=== PATIENT | male | born 1960 | race Caucasian/White ===

== ENCOUNTER → 2024-06-26 09:32 | Outpatient (CLI) | payer OTHER, SELFPAY ==
--- NOTE | 2024-06-26 13:51 | ST.SWALLOW ---
Visit Care Team Role Provider Type Lisha Vargas MD Attending Provider Non-Staff Primary Care Provider Referring Provider Specialty: Family Practice Address: [address] [place] [address], [id number] Email: Modified Barium Swallow Study [employer] Modified Barium Swallow Study Start: 06/26/24 10:29 Freq: Status: Active Protocol: Document 06/26/24 13:14 LNK (Rec: 06/26/24 13:36 [id number]) Modified Barium Swallow Study Total Time Visit Start Time 09:45 Visit Stop Time 10:15 Total Visit Minutes [address] Lisha Vargas Setting Setting Outpatient Care Patient Information Identification Type Name,Date of Patient History Pt seen for Modified Barium Swallow Study with c/o pain in his stomach when eating dense meats such as steak and prime rib. Pt noted that he has been chewing foods well, but that has not reduced the pain. He described the pain as very uncomfortable, pointing to his stomach. Pt denied any swallowing difficulty at the oral, pharyngeal and esophageal area when questioned. Pt denied choking on foods, liquids and medications. Subjective Observations Pt was seated in the fluoroscopy chair with directions and procedures described for him. He indicated he understood and agreed to proceed. Patient Positioning Position View Lat-A/P Imaging Lateral View Textures Administered Trials Presented Thin Liquid via Spoon (IDDSI 0 ),Thin Liquid via Cup (IDDSI 0 ),Extremely Thick Liquid via Spoon (IDDSI 4),Regular (IDDSI 7) Barium Tablet Yes The IDDSI Framework Protocol: IDDSI.1 Oral Impairment Source: The Modified Barium Swallow Impairment Profile (MBSImP??) Lip Closure No labial escape Tongue Control During Bolus Hold Cohesive bolus between tongue to palatal seal Bolus Preparation/Mastication Timely & efficient chewing & mashing Bolus Transport/Lingual Motion Brisk tongue motion Oral Residue Complete oral clearance Initiation of Pharyngeal Swallow Bolus head at posterior laryngeal surface of epiglottis Additional Oral Impairment Observations *OME and DKS were observed to be WNL. *Dentition natural with some missing posterior teeth and in good hygiene *Mastication observed with rotary chew pattern. *Good bolus formation, control and AP transition. Oral phase of swallowing WNL Pharyngeal Impairment Source: The Modified Barium Swallow Impairment Profile (MBSImP??) Soft Palate Elevation No bolus between soft palate & pharyngeal wall Laryngeal Elevation Part.sup.move.thyroid cart/ part.approx.arytenoids to epiglot.petiole Anterior Hyoid Excursion No anterior movement Epiglottic Movement Complete inversion Laryngeal Vestibular Closure Complete; no air/contrast in laryngeal vestibule Pharyngeal Stripping Wave Present - complete Pharyngoesophageal Segment Opening Complete distention & complete duration; no obstruction of flow Tongue Base Retraction No contrast between tongue base & posterior pharyngeal wall Pharyngeal Residue Complete pharyngeal clearance Additional Pharyngeal Impairment Pharyngeal phase of swallowing Observations WNL A/P View Textures Administered Trials Presented Thin Liquid via Cup (IDDSI 0) The IDDSI Framework Protocol: IDDSI.1 A/P View Observations Pharyngeal Contraction Complete Esophageal Clearance Upright Position Complete clearance; esophageal coating Vocal Fold Function Good Esophageal Function WFL Additional A-P Observations Esophageal phase of swallowing WNL Clinical Impressions Dysphagia Type WNL Findings Swallow observed to be WNL across all phases GI recommendation re: pain in stomach area when eating dense meats (steak, prime rib, etc) Patient Appropriate for Therapy No Recommendations Diet Comments no diet change recommended Treatment Plan Recommended Referrals GI Consult
== END ==
LOC: RAD 09:34
PROVIDERS: PCP Family Medicine; Referring Provider Family Medicine; Visit Provider Family Medicine
DX: R13.10 Dysphagia, unspecified (principal)
CPT/HCPCS: 74230; 92611